=== PATIENT | female | born 1980 | race Caucasian/White ===

== ENCOUNTER → 2016-07-08 | Outpatient (CLI) | payer OTHER ==
--- NOTE | 2016-07-08 09:53 | US ---
July 08, [address] Camp and Providers at [facility], [place], Thank you for requesting consultation and a follow up ultrasound for your patient, Mrs. Justice hanson. As you know, Lona is a 36 year-old 4, para 1112. Her due date is 08/31/16 by 11 wee k ultrasound. Her current gestational age based on this dating is 32 weeks 2 days. She is seen toda y for Dopplers secondary to IUGR diagnosed around 20 weeks of . She had reassuring NI PT. Her last assessment of growth was on 06/25/16 at the 5th%ile. ULTRASOUND Number of fetuses: 1 Placental location: Posterior presentation: Cephalic Heart Rate: 132 bpm Cervix: Limited views, measuring 4.0 cm viewed transabdominally Maximum Vertical Pocket: 5.9 cm DOPPLERS Umbilical Artery 1: S/D ratio 3.5-3.8 which is normal to the 95th%ile. Umbilical Artery 2: S/D ratio 3.1-3.3 which is normal for this gestational age. Umbilical Vein: No pulsatility The umbilical artery S/D ratio at the 50th%ile for this gestational age is 2.6, and the 95th% is 3.8. Middle Cerebral Artery PI: 1.9 Umbilical Artery PI: 1.1 Cerebral Perfusion Index: Normal IMPRESSION: 1. Intrauterine at 32 weeks, 2 days; DL of 08/31/16. 2. growth restriction with last growth at 5th%ile on 06/25/16. 3. Normal Dopplers (with one at the 95th%ile) 4. Normal amniotic fluid volume RECOMMENDATIONS: We discussed the Doppler studies today which are improved somewhat on today's evaluation with o nly one artery at the 95th%ile. The cerebral perfusion index is normal and both umbilical arteries h ave forward flow without evidence of absent or reverse end diastolic flow. She continues to have goo d movement and knows to contact your office should this diminish or be absent. I recommend: 1. Start twice weekly NSTs and weekly ANDRES. 2. She is scheduled to follow up growth and Dopplers in 2 weeks. Thank you for allowing us the opportunity to evaluate your patient. Should you have any further ques tions or concerns please do not hesitate to contact me. Approximately 15 minutes were spent with the patient and 10 minutes were spent in face to face consu ltation. Heydi Mckenzie MD [place] Maternal Medicine Diagnosis Department of Obstetrics & Gynecology [facility]
--- NOTE | 2016-07-08 13:06 | US ---
Limited Obstetric Ultrasound - July 08, 2016 at 0856 hours Indication: 36-year-old 4, para 1-1-1-2. growth restriction. The estimated gestational age by LMP is 32 weeks and 2 days, yielding an EDC of August 31, 2016. Comparison: June 25, 2016. Findings: Number: One Presentation: Vertex Placental location: Posterior Cervix: 4.0 cm Maximum vertical pocket: 6.9 cm heart rate: 132 bpm Umbilical artery #1: S:D ratio is 2.8 to 3.8, which is within the 95th percentile. Umbilical artery #2: S:D ratio is 3.1 to 3.4, which is normal for gestational age. Umbilical vein: There is normal flow with evidence of pulsatility. Middle cerebral artery pulsatility index: 1.99 (normal). Umbilical artery pulsatility index: 1.15 CPI: 1.17 (normal). Impression: 1. IUP at 32 weeks 2 days with an estimated date of confinement of August 31, 2016. 2. Normal Dopplers, with the umbilical artery #1 being within the 95th percentile 3. Normal amniotic fluid. Patient was scheduled and seen with the Maternal Medicine Service. Please see separate report f or full recommendations.
== END ==
LOC: FIMAGING 08:49
PROVIDERS: ATTEND Obstetrics & Gynecology
DX: O09.523 Supervision of elderly multigravida, third trimester (principal); Z3A.32 32 weeks gestation of pregnancy; O36.5931 Maternal care for other known or suspected poor fetal growth, third trimester, fetus 1

== ENCOUNTER → 2016-07-23 | Outpatient (CLI) | payer OTHER ==
--- NOTE | 2016-07-23 17:58 | US ---
Dear Dr. Camp, Thank you for sending your patient, Lona Dorman, to us for a follow-up US to assess interval growth and Dopplers. As you know, the patient is a 36 y.o. G4, P1112 at 34 weeks and 3 days with an EDC of 08/31/16 based on an 11 week US. Her is complicated by IUGR diagnosed at 20 weeks with normal Dopplers to date. Genetic Screening: NIPT reassuring The patient denies any uterine contractions, vaginal bleeding, or loss of fluid. She reports excellen t movement. Today, she is without complaints. US FINDINGS: Number of fetuses: 1 Placental location: Posterior fundal, no previa presentation: Cephalic Cervix: Suboptimal ANDRES: 11.3 cm Heart Rate: 142 bpm Measurements: Biparietal diameter: 80 mm, 32 weeks 1 days Head circumference: 307 mm, 34 weeks 2 days Abdominal circumference: 274 mm, 31 weeks 4 days Femur length: 62 mm, 32 weeks 2 days Humerus length: 52 mm, 30 weeks 4 days Transcerebellar diameter: 45 mm, 34 weeks 3 days Cerebral Lateral Ventricle: 3.4 mm Cisterna Magna: 2.7 mm Average ultrasound age: 32 weeks 4 days Estimated weight: 1888 g weight percentile: 3 % ANATOMY anatomy was previously assessed. Today the following structures were visualized and appeared n ormal: lateral ventricles, posterior fossa, 4CH view, stomach, kidneys, and bladder. DOPPLERS: Color and spectral analysis was performed. Umbilical Artery 1: S/D ratio 3.5 , Normal Umbilical Artery 2: S/D ratio 3.2, Normal For gestational age, the 50%ile is 2.49 and the 95%ile is 3.54. Umbilical Vein: No pulsations, Normal Middle Cerebral Artery: -- PI: 1.8 -- CP Ratio: 1.56, Normal IMPRESSION: IUGR: Today, the fetus measures in the 3%ile for gestational age (previously 5%ile). The Doppler asse ssment continues to be reassuring without evidence of brain sparing. There is a normal volume of amni otic fluid. - Continue twice weekly NSTs and weekly fluid checks on weeks she does not receive Dopplers - Dopplers in 2 weeks - Delivery at 37 weeks or sooner for changes in maternal or status Thank you again for sending this patient to see us today. Approximately 15 minutes were spent with is patient today with 12 minutes of this time spent in direct face to face counseling regarding today 's US findings and our recommendations. Please contact me with any questions at . Dee Miranda MD Maternal- Medicine
--- NOTE | 2016-07-24 18:48 | US ---
Obstetrical Sonogram Detail Clinical Indications: Advanced maternal age. Evaluate growth and follow-up IUGR with comparison to t he previous examination July 08, 2016. Technique: Longitudinal and transverse images are obtained. Dr. Miranda was present for the examinati on. Color Doppler evaluation is employed for assessment of vascularity. Findings: A single fetus is present in vertex presentation. Maternal cervical length is suboptimally evaluated . The amount of amniotic fluid is normal with an ANDRES of 11.3 cm. The placenta is located posterior a nd fundal with no placenta previa.. Umbilical cord insertion has been previously evaluated. Punctate echogenic foci are seen in the placenta suggesting calcification. motion is identified. A full anatomic scan has been performed previously. cardiac activit y is documented with a heart rate estimated at 142 beats per minute. A four-chamber heart view is obt ained. stomach, kidneys and bladder are normal. Supratentorial brain, posterior fossa cisterna magna and lateral ventricles appear normal.. No abnormality is identified. biometry: Biparietal diameter = 80 mm = 32 weeks 1 day Head circumference = 307 mm = 34 weeks 2 days Abdominal circumference = 274 mm = 31 weeks 4 days Femur length = 62 mm = 32 weeks 2 days Estimated weight 1888 +/- 276 grams. This is at the 3rd percentile based on last menstrual zonia od. The estimated delivery date by ultrasound is September 13, 2016. This compares to the clinical date of [facility] 2016. Umbilical artery evaluation: Umbilical artery 1: S/D ratio 2.8-3.5 which is normal for this gestational age Umbilical artery 2: S/D ratio 2.6-3.2 which is normal for this gestational age S/D values for this gestational age; 50th percentile 2.49, 95th percentile 3.54 Umbilical vein: Normal, no pulsatility identified. Impression: Single live intrauterine gestation with estimated age by ultrasound of 32 weeks 4 days with an estima carito delivery date of September 13, 2016 which compares to a clinical date of August 31, 2016. Persistent IUGR with growth estimated at the 3rd percentile. Umbilical artery Dopplers are normal an d the amount of amniotic fluid is normal. Please see Dr. Miranda's report for findings and recommendations.
== END ==
LOC: FIMAGING 12:18
PROVIDERS: ATTEND Obstetrics & Gynecology
DX: O09.523 Supervision of elderly multigravida, third trimester (principal); O36.5930 Maternal care for other known or suspected poor fetal growth, third trimester, not applicable or unspecified; Z3A.34 34 weeks gestation of pregnancy

== ENCOUNTER → 2016-08-06 | Outpatient (CLI) | payer OTHER ==
--- NOTE | 2016-08-06 13:42 | US ---
August 06, [address] Camp, Thank you for allowing us to see her back for follow up today. As you know, she is a 36 year old G 4 P 1112 at 36 weeks and 3 days who has been seen for growth restriction. The evaluation has included a normal NIPT and no evidence of TORCH infection by ultrasound. Her dopplers have been normal to this point. Today, presentation cephalic MVP 5.2 cm Umbilical artery 1 S/D 2.6 Umbilical artery 2 S/D 2.5 95% for this gestational age of 3.4 Impression: 1) SIUP with dopplers today that are stable and normal. She reports a plan for IOL at 37 weeks (this Friday) with which I agree and will continue kick counts/NSts til then. A total of 15 minutes was spent and 15 in face to face time reviewing findings and plan of care as ab gilliland. Cindi Shetty MD Perinatologist [facility]
--- NOTE | 2016-08-06 13:54 | US ---
Limited OB Sonogram with duplex Doppler analysis History: DL 08/31/2016, 36 weeks 3 days, IUGR, Doppler evaluation for IUGR Comparison: July 23, 2016 Findings: The fetus is in vertex presentation. The cervix is closed measuring approximately 3.3 cm. M aximum amniotic fluid pocket = 5.2 cm. The placenta is maturing with scattered punctate calcification s within it. The heart is 4 chambered with a rate of 143 bpm. Umbilical artery #1 S/D ratio 2.6. Umbilical artery #2 S/D ratio 2.5 Umbilical vein: No pulsatility Middle cerebral artery resistive index: 0.82 Impression: Stable normal Dopplers. Normal amniotic fluid. The cervix is closed. This report should be read in conjunction with a consultation by Dr. Cindi Shetty.
== END ==
LOC: FIMAGING 12:27
PROVIDERS: ATTEND Obstetrics & Gynecology
DX: O09.523 Supervision of elderly multigravida, third trimester (principal); Z3A.38 38 weeks gestation of pregnancy

== ENCOUNTER 2016-08-09 06:03 | Inpatient (IN) | payer OTHER ==
[2016-08-09] MEDS ORDERED: MINERAL OIL 60 ML OIL TP PRN (06:23)
[2016-08-09] MEDS ORDERED: OXYTOCIN/RINGERS LACTATE 1,000 ML IV PRN (06:23)
[2016-08-09] MEDS ORDERED: LR 1,000 ML IV PRN (06:23)
[2016-08-09] MEDS ORDERED: LIDOCAINE 1% 30 ML SDV SC PRN (06:23)
[2016-08-09] MEDS ORDERED: TERBUTALINE SULFATE 1 MG/ML VIAL IV PRN (06:23)
[2016-08-09] MEDS ORDERED: EPSOM SALT 454 GM TP PRN (06:23)
[2016-08-09 06:42] LABS: % IMMATURE GRANULYOCYTES 0.5 % (0.0-1.1); ABSOLUTE IMMATURE GRANULOCYTES 0.05 10^3/uL (0.00-0.10); ADD DIFF? NO; ADD MORPH? NO; ADD SCAN? NO; ATYPICAL LYMPHOCYTE FLAG 0 (0-99); FRAGMENT RBC FLAG 0 (0-99); HEMATOCRIT 38.3 % (38.0-47.0); LEFT SHIFT FLG 0 (0-99); LIPEMIA HEMOLYSIS FLAG 90 (0-99); MEAN CELL HEMOGLOBIN 29.8 pg (27.9-34.1); MEAN CELL HEMOGLOBIN CONCENTR. 33.9 g/dL (32.4-36.7); MEAN CELL VOLUME 87.8 fL (81.5-99.8); MEAN PLATELET VOLUME 9.7 fL (8.7-11.7); PLATELET CLUMPS FLAG 10 (0-99); PLATELET COUNT 286 10^3/uL (150-400); RED BLOOD CELL COUNT 4.36 10^6/uL (4.18-5.33); RED CELL DISTRIBUTION WIDTH 13.8 % (11.5-15.2)
[2016-08-09] MEDS ORDERED: AMMONIA AROMATIC 1 EACH AMP IH ONE (06:42)
[2016-08-09] MEDS ORDERED: LIDOCAINE 1% 30 ML SDV ONE (06:42)
[2016-08-09] MEDS ORDERED: TERBUTALINE SULFATE 1 MG/ML VIAL ONE (06:42)
[2016-08-09] MEDS ORDERED: MISOPROSTOL 200 MCG TAB ONE (06:43)
[2016-08-09] MEDS ORDERED: OXYTOCIN 10 UNIT/ML VIAL ONE (06:43)
[2016-08-09] MEDS ORDERED: OXYTOCIN/LR *LOW DOSE PROTOCOL IV SCH (07:00)
--- NOTE | 2016-08-09 09:23 | GHP ---
[f rep st] HISTORY AND PHYSICAL DATE OF ADMISSION: 08/09/2016 ADMISSION DIAGNOSES: 1. Intrauterine at 36 weeks and 6 days. 2. Persistent intrauterine growth restriction. HISTORY OF PRESENT ILLNESS: The patient is a 36-year-old 4, para 1-1-1- 2, at 36-6/7 weeks with an unknown last menstrual period with an DL of 2016, by an 11-week ultrasound. The patient is being followed by [facility] for IUGR since 20 weeks with EFW around 9%. At a followup scan at 34 weeks, she was found to have persistent IUGR with an estimated weight in the 3rd percentile, 1888 g. Dopplers have been normal, but [facility] recommended delivery at around 37 weeks. testing has been reassuring with twice weekly NSTs. The patient has good care at [facility] and presented in the first trimester. The patient does have a history of delivery at 36 weeks and was started on weekly Martina at 16 weeks. She did have some spotting in her second trimester which resolved. is complicated by AMA and all genetic testing is negative. The patient did receive both Tdap and flu vaccine during the . GBS is negative. OBSTETRICAL HISTORY: In 2008, she had an early SAB. In 2010, she delivered at 36 and 6 weeks with P-PROM a viable female weighing 4 pounds 10 ounces, vaginal delivery. The was IUI and Femara. In 2013, again with IUI and Femara, delivered a viable male weighing 5 pounds 10 ounce at 38 weeks. GYNECOLOGIC HISTORY: Age of menarche 11 years. Cycles are irregular. Could be anywhere from every 4-6 weeks and bleeds anywhere from 3-7 days. Unsure about last menstrual. Patient did have a positive test on 2015. The patient denies any history of abnormal Pap smears or any exposure to sexually transmitted diseases. The patient did have a normal Pap test and gonorrhea/chlamydia cultures in this . PAST MEDICAL HISTORY: Infertility. PAST SURGICAL HISTORY: In 2014, she had a broken bone in her right hand. [place] teeth extraction. FAMILY HISTORY: Her mother had a myocardial infarction at age 60. Maternal grandfather from heart disease. Father with chronic hypertension. The patient has a maternal uncle and mom with Marfan's syndrome (the patient has seen a genetic counselor with no concern for the ). MEDICATIONS: [id number] vitamins. ALLERGIES: No known drug allergies. LABORATORY DATA: labs: Blood type B-positive, antibody negative. RPR nonreactive. Rubella immune. Hepatitis B surface antigen negative. HIV negative. Trio negative. Verifi negative. TSH 1.35. Pap smear and gonorrhea/ chlamydia cultures negative. H and H at 20 weeks were 11.4 and 33.7. One-hour Glucola normal at 106. GBS culture negative. PHYSICAL EXAMINATION: VITAL SIGNS: On admission, the patient's vital signs are stable. Afebrile. GENERAL: The patient is a well-nourished, well- developed female, alert and oriented x3. No apparent distress. HEART: Regular rate and rhythm. LUNGS: Clear to auscultation. ABDOMEN: Gravid. Soft, nontender, nondistended. Positive bowel sounds. PELVIC EXAM: She was found to be 1-2 cm dilated, 50% effaced, and -2 station. On monitor, heart tones - category 1 tracing. Positive accels. No decels. Moderate variability. Baseline of 140 beats per minute. On toco, she is kari regularly every 3-5 minutes. ASSESSMENT: The patient is a 36-year-old 4, para 1-1-1-2, at 36 weeks and 6 days, who presents for induction of labor secondary to persistent intrauterine growth restriction. PLAN: 1. For admission to Labor and delivery. 2. Induction of labor per Pitocin protocol. 3. GBS was negative, no prophylaxis antibiotics are needed. 4. Nitrous, epidural upon request. /[id number]/MODL MTDD
[2016-08-09] MEDS ORDERED: HYDROCORTISONE 0.5% CREAM TP PRN (13:55)
[2016-08-09] MEDS ORDERED: SIMETHICONE 80 MG TAB CHEW PO PRN (13:55)
[2016-08-09] MEDS ORDERED: IBUPROFEN 600 MG TAB PO PRN (13:56)
--- NOTE | 2016-08-09 14:00 | OBPROC ---
- Labor and Delivery Onset of Contractions Date: 08/09/16 Onset of Contractions Time: 09:00 Onset of Contractions Type: Induced Rupture of Membranes Date: 08/09/16 Rupture of Membranes Time: 13:03 Rupture of Membranes Type: Spontaneous Amniotic Fluid Color: Clear Dilation Complete Time: 13:14 Delivery Type: Spontaneous Placenta Delivery Date: 08/09/16 Placenta Delivery Time: 13:22 Episiotomy/Laceration: 2nd Degree Repair: 3-0, Vicryl EBL: 300 Complications: Nuchal Cord (loose, slipped x 1) - Medications Labor Augmentation/Induction Meds Used: Pitocin Labor Augmentation/Induction Indication: IUGR (EFW 3%) Anesthesia: Local (Specify) (1% plain lidocaine) - [place] Info A Delivery Date: 08/09/16 Delivery Time: : Sex of Infant: Female Score (1 Min): 9 Score (5 Min): 9
[2016-08-09] MEDS: DOCUSATE SODIUM 100 MG CAP PO PRN (19:47)
[2016-08-09] MEDS: IBUPROFEN 600 MG TAB PO PRN (19:47)
[2016-08-10] MEDS: IBUPROFEN 600 MG TAB PO PRN ×4 (01:36→20:04)
[2016-08-10] MEDS: HYDROCODONE/APAP 5/325 TAB PO PRN ×3 (01:36→16:36)
--- NOTE | 2016-08-10 07:25 | OBPROG ---
OBG Progress Note Assessment/Plan: Assessment: s/p PPD # 1 - pt is stable Plan: Continue routine pp care Encourage ambulation Plan for d/c home in am /12 08/10/16 07:23 Subjective: Pt seen and examined. Doing well, no complaints. She is without difficulty, but is having ctx's which seem painful. She is taking [place] and pain is relieved. She is OOB, carrie reg diet, voiding, passing flatus. Moderate lochia. Objective: 08/09/16 06:15 Patient ABO/Rh B POSITIVE 08/09/16 06:15 Temp Pulse Resp BP Pulse Ox 36.8 C 83 17 104/69 91 L 08/10/16 01:40 08/09/16 19:40 08/09/16 19:40 08/09/16 19:40 08/09/16 19:40 Uterine Position/Fundal Height: Umbilicus -2 Uterine Tone: Firm - Physical Exam General Appearance: WD/WN, alert, no apparent distress Respiratory: lungs clear, normal breath sounds Cardiac/Chest: regular rate, rhythm Abdomen: normal bowel sounds, non-tender, soft, flatus (+) Genitourinary: laceration (intact), lochia (moderate) Extremities: non-tender, normal inspection Neuro/Psych: alert, normal mood/affect, oriented x 3 ICD10 Worksheet Patient Problems: Problems Problem Status Diagnosed IUGR (intrauterine growth restriction) Acute (spontaneous vaginal delivery) Acute
[2016-08-10] MEDS: DOCUSATE SODIUM 100 MG CAP PO PRN ×2 (08:04→20:03)
[2016-08-10 20:27] VITALS: O2SAT 96
[2016-08-11] MEDS: IBUPROFEN 600 MG TAB PO PRN ×2 (02:09→08:10)
[2016-08-11] MEDS: HYDROCODONE/APAP 5/325 TAB PO PRN (02:13)
--- NOTE | 2016-08-11 06:38 | OBPROG ---
OBG Progress Note Assessment/Plan: Assessment: s/p PPD # 2 - pt is stable Plan: Continue routine pp care Plan for d/c home today Instructions reviewed with pt Rx given for [place] Cont PNV RTC in 6 weeks for pp visit 08/11/16 06:36 Subjective: Pt seen and examined. Doing well, with no complaints. Cramping is well controlled with [place]. Moderate lochia. Yobany reg diet, voiding and passing flatus. No BM yet. without difficulty. Objective: 08/09/16 06:15 Patient ABO/Rh B POSITIVE 08/09/16 06:15 Temp Pulse Resp BP Pulse Ox 36.1 C 73 18 107/74 96 08/10/16 19:30 08/10/16 19:30 08/10/16 19:30 08/10/16 19:30 08/10/16 19:30 Uterine Position/Fundal Height: Umbilicus -2 Uterine Tone: Firm - Physical Exam General Appearance: WD/WN, alert, no apparent distress Respiratory: lungs clear, normal breath sounds Cardiac/Chest: regular rate, rhythm Abdomen: normal bowel sounds, non-tender, soft, flatus (+) Genitourinary: laceration (intact), lochia (moderate) Extremities: non-tender, normal inspection Neuro/Psych: alert, normal mood/affect, oriented x 3 ICD10 Worksheet Patient Problems: Problems Problem Status Diagnosed IUGR (intrauterine growth restriction) Acute (spontaneous vaginal delivery) Acute
[2016-08-11 08:09] VITALS: BP 104/69; PULSE 76; RESP 16; TEMP 97.4
== END 2016-08-11 12:23 | disposition home or self-care (01) | DRG 775 ==
LOC: FLD 06:03 → FOB 16:29
PROVIDERS: ADMIT Obstetrics & Gynecology; ATTEND Obstetrics & Gynecology
PROC: 0KQM0ZZ Repair Perineum Muscle, Open Approach (ICD-10-PCS; principal; 2016-08-09)
PROC: 10E0XZZ Delivery of Products of Conception, External Approach (ICD-10-PCS; principal; 2016-08-09)
PROC: 3E033VJ Introduction of Other Hormone into Peripheral Vein, Percutaneous Approach (ICD-10-PCS; principal; 2016-08-09)
DX: O36.5930 Maternal care for other known or suspected poor fetal growth, third trimester, not applicable or unspecified (principal); O60.14X0 Preterm labor third trimester with preterm delivery third trimester, not applicable or unspecified; O70.1 Second degree perineal laceration during delivery; O09.523 Supervision of elderly multigravida, third trimester; O69.81X0 Labor and delivery complicated by cord around neck, without compression, not applicable or unspecified; Z3A.36 36 weeks gestation of pregnancy; Z37.0 Single live birth
CPT/HCPCS: J2590; J3105